=== PATIENT | male | born 1985 | race Caucasian/White ===

== ENCOUNTER 2023-10-26 11:38 | Emergency (ER) | payer OTHER ==
[~2023-10-26] VITALS: Ht 180.3 cm; Wt 78.9 kg
[2023-10-26 11:55] VITALS: BP 133/67
== END 2023-10-26 13:06 | disposition home or self-care (01) ==
LOC: ER 11:38
DX: M25.511 Pain in right shoulder (principal); V89.2XXA Person injured in unspecified motor-vehicle accident, traffic, initial encounter; F17.200 Nicotine dependence, unspecified, uncomplicated
CPT/HCPCS: 73030; 99283-25

== ENCOUNTER 2025-01-29 02:48 | Emergency (ER) | payer OTHER ==
[~2025-01-29] VITALS: Ht 175.3 cm; Wt 77.1 kg
[2025-01-29 03:03] VITALS: BP 124/70
== END 2025-01-29 04:18 | disposition home or self-care (01) ==
LOC: ER 02:48
DX: S41.052A Open bite of left shoulder, initial encounter (principal); Y04.1XXA Assault by human bite, initial encounter